=== PATIENT | female | born 1970 | race Caucasian/White ===

== ENCOUNTER 2018-11-15 10:48 | Inpatient (IN) | payer OTHER ==
[2018-11-15] MEDS ORDERED: Fentanyl 100 MCG/2 ML VIAL ONE (10:54)
[2018-11-15] MEDS ORDERED: Lorazepam 2 MG/ML VIAL ONE (10:54)
[2018-11-15] MEDS ORDERED: Ketorolac Tromethamine 60 MG/2 ML VIAL ONE (12:30)
[2018-11-15] MEDS ORDERED: Ketamine 50 MG/ML (10ML VIAL) ONE (12:31)
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
[2018-11-15] MEDS ORDERED: Ondansetron ODT 4 MG TAB SL PRN (13:52)
[2018-11-15] MEDS ORDERED: Ondansetron PF 4 MG/2 ML Vial IVP PRN ×2 (13:52→14:09)
[2018-11-15] MEDS ORDERED: Lorazepam 2 MG/ML VIAL SLOW IVP PRN (13:59)
[2018-11-15] MEDS ORDERED: Promethazine HCl 25 MG/ML VIAL IM PRN (14:00)
[2018-11-15] MEDS ORDERED: Dextrose 50% Abboject 50 ML SYRINGE SLOW IVP PRN ×2 (14:09)
[2018-11-15] MEDS ORDERED: traMADol HCl 50 MG TAB PO PRN (14:09)
[2018-11-15] MEDS ORDERED: hydrALAZINE 20 MG/ML VIAL SLOW IVP PRN (14:09)
[2018-11-15] MEDS ORDERED: Dextrose 5% in Water 1,000 ML IV PRN (14:09)
[2018-11-15] MEDS ORDERED: Morphine 4 MG/ML VIAL ONE ×2 (14:16→15:06)
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
[2018-11-15] MEDS: Acetaminophen 1,000 MG in Premix Bag 1 BAG IVPB SCH ×2 (16:00→21:00)
[2018-11-15] MEDS: Gabapentin 100 MG CAP PO SCH ×3 (16:00→21:22)
[2018-11-15] MEDS: Sodium Chloride 0.9% 1,000 ML IV SCH (16:00)
[2018-11-15] MEDS: Oxazepam 10 MG CAP PO SCH ×2 (16:10→21:22)
[2018-11-15] MEDS ORDERED: ISOVUE-370 76%-LOCM 1 ML ONE (16:52)
[2018-11-15 17:03] VITALS: BMI 25.4
[2018-11-15 17:20] LABS: Amphetamine Not Detected (NotDetected); Barbiturates Screen Not Detected (NotDetected); Benzodiazepine Screen Detected (NotDetected); Cocaine Metabolite Screen Not Detected (NotDetected); Medtox Control Line Valid? VALID (VALID); Medtox Reader # READER 4; Methadone Not Detected (NotDetected); Methamphetamine Not Detected (NotDetected); Opiate Screen Detected (NotDetected); Oxycodone Screen Not Detected (NotDetected); Phencyclidine (PCP) Not Detected (NotDetected); THC/Cannabinoid Screen Detected (NotDetected); Tricyclic Screen Not Detected (NotDetected)
[2018-11-15] MEDS: Fentanyl 100 MCG/2 ML VIAL SLOW IVP PRN ×2 (19:49→23:18)
[2018-11-15] MEDS: Senokot S 8.6-50 MG TAB PO SCH (21:22)
[2018-11-15] MEDS: Famotidine 20 MG TAB PO SCH (21:22)
[2018-11-15] MEDS: traMADol HCl 50 MG TAB PO PRN (22:23)
[2018-11-16] MEDS: Sodium Chloride 0.9% 1,000 ML IV SCH ×2 (00:43→16:50)
[2018-11-16] MEDS ORDERED: Morphine 2 MG/ML SYRINGE SLOW IVP PRN (00:54)
[2018-11-16] MEDS: Acetaminophen 1,000 MG in Premix Bag 1 BAG IVPB SCH ×2 (01:51→08:38)
[2018-11-16] MEDS: Fentanyl 100 MCG/2 ML VIAL SLOW IVP PRN (02:19)
[2018-11-16 05:50] LABS: #Lymphocytes 1.2 thou/uL (1.20-3.40); #Monocytes 0.6 thou/uL (0.11-0.59); #Neutrophils 8.8 thou/uL (1.40-6.50); %Eosinophils 0.2 % (0.0-10.0); %Lymphocytes 11.6 % (21.0-51.0); %Monocytes 5.6 % (0.0-10.0); %Neutrophils 82.6 % (42.0-75.0); Hemoglobin 12.7 g/dL (12.0-16.0); Mean Corpuscular HGB CONC 34.2 g/dL (32.0-36.0); Mean Corpuscular Hemoglobin 33.5 pg (27.0-31.0); Mean Corpuscular Volume 97.8 fL (78.0-98.0); Mean Platelet Volume 5.9 fL (7.4-10.4); Platelet Count 239 thou/uL (130-400); Red Blood Cell (RBC) Count 3.78 mill/uL (4.20-5.40); White Blood Cell (WBC) Count 10.6 thou/uL (4.8-10.8)
[2018-11-16 06:16] LABS: Anion Gap 10 mmol/L (10-20); BUN (Urea Nitrogen) 6 mg/dL (7.0-18.7); Calc. Creatinine Clearance 136 mL/min (70-130); Calcium 8.5 mg/dL (7.8-10.44); Carbon Dioxide 21 mmol/L (22-29); Chloride 105 mmol/L (98-107); Estimated GFR-MDRD Greater than 90; Glucose 97 mg/dL (70-105); Magnesium 2.1 mg/dL (1.6-2.6); Phosphorus 3.1 mg/dL (2.3-4.7); Potassium 3.9 mmol/L (3.5-5.1); Sodium 132 mmol/L (136-145)
[2018-11-16] MEDS: Oxazepam 10 MG CAP PO SCH ×3 (06:30→21:52)
[2018-11-16] MEDS: Gabapentin 100 MG CAP PO SCH (08:38)
[2018-11-16] MEDS: Famotidine 20 MG TAB PO SCH ×2 (08:39→20:09)
[2018-11-16] MEDS: Cyclobenzaprine 10 MG TAB PO PRN ×2 (08:46→17:21)
[2018-11-16] MEDS ORDERED: Gabapentin 100 MG CAP PO SCH (12:02)
[2018-11-16] MEDS: traMADol HCl 50 MG TAB PO PRN ×2 (12:16→17:21)
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
[2018-11-16] MEDS: Acetaminophen 500 MG TAB PO SCH ×2 (13:45→20:08)
[2018-11-16] MEDS: Gabapentin 300 MG CAP PO SCH ×2 (13:45→20:09)
[2018-11-16] MEDS: Senokot S 8.6-50 MG TAB PO SCH ×2 (15:48→20:08)
[2018-11-16] MEDS: Polyethylene Glycol 3350 17 GM Packet PO SCH (15:49)
[2018-11-16] MEDS ORDERED: Potassium Phosphate 15 MMOL in Sodium Chloride 0.9% 250 ML 250 ML IVPB SCH (16:45)
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
[2018-11-17] MEDS: traMADol HCl 50 MG TAB PO PRN ×2 (00:26→09:17)
[2018-11-17] MEDS: Cyclobenzaprine 10 MG TAB PO PRN (00:26)
[2018-11-17] MEDS: Acetaminophen 500 MG TAB PO SCH ×3 (02:17→14:24)
[2018-11-17] MEDS: Oxazepam 10 MG CAP PO SCH ×2 (06:24→14:24)
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
[2018-11-17] MEDS: Senokot S 8.6-50 MG TAB PO SCH (09:11)
[2018-11-17] MEDS: Gabapentin 300 MG CAP PO SCH ×2 (09:12→14:24)
[2018-11-17] MEDS: Famotidine 20 MG TAB PO SCH (09:12)
[2018-11-17] MEDS: Polyethylene Glycol 3350 17 GM Packet PO SCH (09:12)
[2018-11-17 12:53] VITALS: BP 121/76; TEMP 97.6
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
== END 2018-11-17 14:45 | disposition home or self-care (01) | DRG 552 ==
LOC: ERS 10:48 → SURG B 13:48
PROVIDERS: ADMIT Surgery; ATTEND Surgery
DX: S12.100A Unspecified displaced fracture of second cervical vertebra, initial encounter for closed fracture (principal); G81.94 Hemiplegia, unspecified affecting left nondominant side; F12.90 Cannabis use, unspecified, uncomplicated; F10.10 Alcohol abuse, uncomplicated; F17.210 Nicotine dependence, cigarettes, uncomplicated; V47.5XXA Car driver injured in collision with fixed or stationary object in traffic accident, initial encounter
CPT/HCPCS: 36415; 70496; 70498; 80048; 80306; 83735; 84100; 85025; 96374; 96375; G0390; J0131; J1885; J2060; J2270; J2405; J2550; J3010; J7050; Q9966